=== PATIENT | female | born 1970 | race African-American/Black ===

== ENCOUNTER 2021-07-30 07:39 | Emergency (ER) | payer BC, OTHER ==
[2021-07-30 08:41] LABS: #Eosinphils 0.4 10x3/uL (0.0-0.5); #Monocytes 0.7 10x3/uL (0.0-1.1); #Neutrophils 7.6 10x3/uL (1.5-8.4); %Basophils 0.3 % (0.0-2.0); %Eosinophils 3.7 % (0.0-6.0); %Lymphocytes 22.1 % (18.0-47.0); %Monocytes 6.4 % (0.0-10.0); %Neutrophils 67.1 % (40.0-75.0); Hemoglobin 12.2 g/dL (12.0-15.5); Mean Corpuscular HGB CONC 31.2 g/dL (32.0-36.0); Mean Corpuscular Hemoglobin 26.3 pg (27.0-33.0); Mean Corpuscular Volume 84.4 fl (81.6-98.3); Mean Platelet Volume 12.3 fl (7.4-10.4); Platelet Count 236 10x3/uL (150-450); RBC Distribution Width 13.5 % (11.5-14.5); Red Blood Cell (RBC) Count 4.63 10x6/uL (3.90-5.03); White Blood Cell (WBC) Count 11.3 10x3/uL (3.5-10.5)
[2021-07-30 08:51] LABS: INR-International Normal Ratio 0.9; PTT 25.6 sec (22.0-33.0); Prothrombin Time 10.1 sec (9.5-12.1)
[2021-07-30 08:56] LABS: ALT (SGPT) 25 U/L (8-55); AST (SGOT) 14 U/L (5-34); Albumin 3.9 g/dL (3.5-5.0); Alkaline Phosphatase 112 U/L (40-110); Anion Gap 14 mmol/L (10-20); BUN (Urea Nitrogen) 15 mg/dL (9.8-20.1); Bilirubin, Total 0.3 mg/dL (0.2-1.2); Calc. Creatinine Clearance 0 mL/min (70-130); Calcium 9.3 mg/dL (7.8-10.44); Carbon Dioxide 24 mmol/L (22-29); Chloride 108 mmol/L (98-107); Globulin 3.2 g/dL (2.4-3.5); Glucose 129 mg/dL (70-105); Potassium 3.8 mmol/L (3.5-5.1); Protein, Total 7.1 g/dL (6.0-8.3); Sodium 142 mmol/L (136-145)
== END 2021-07-30 09:43 | disposition home or self-care (01) ==
LOC: CSHERS 07:39
DX: K64.4 Residual hemorrhoidal skin tags (principal); E66.9 Obesity, unspecified; E11.9 Type 2 diabetes mellitus without complications; Z79.899 Other long term (current) drug therapy
CPT/HCPCS: 80053; 82274; 85025; 85610; 85730; 86850; 86900; 86901

== ENCOUNTER 2021-08-12 10:10 | Outpatient (CLI) | payer BC, OTHER | END 2021-08-12 10:11 | disposition home or self-care (01) | LOC: CSHMAMMO 10:10 | PROVIDERS: ATTEND Family Medicine | DX: Z12.31 Encounter for screening mammogram for malignant neoplasm of breast (principal); Z80.3 Family history of malignant neoplasm of breast | CPT/HCPCS: 77063; 77067 ==

== ENCOUNTER 2021-12-29 08:41 | Outpatient (CLI) | payer BC, OTHER ==
[2021-12-29] MEDS ORDERED: Magnevist 469MG/ML 20 ML VIAL ONE (13:59)
== END 2021-12-29 08:42 | disposition home or self-care (01) ==
LOC: CSHMRI 08:41
PROVIDERS: ATTEND Family Medicine
DX: R42 Dizziness and giddiness (principal)
CPT/HCPCS: 70553; A9579